=== PATIENT | female | born 1995 | race Caucasian/White ===

== ENCOUNTER 2017-04-05 15:57 | Emergency (ER) | payer OTHER ==
[2017-04-05 16:11] VITALS: BP 123/83; PULSE 93; TEMP 99.4; BMI 23.2
[2017-04-05] MEDS ORDERED: DEXAMETHASONE SOD PHOSPHATE 10 MG/1 ML VIAL IVPUSH ONE (16:30)
[2017-04-05] MEDS ORDERED: SODIUM CHLORIDE 1,000 ML IV STA (16:30)
[2017-04-05] MEDS ORDERED: KETOROLAC TROMETHAMINE 15 MG/ML VIAL IVPUSH ONE (16:30)
[2017-04-05] MEDS ORDERED: KETOROLAC TROMETHAMINE 15 MG/ML VIAL ONE (16:43)
[2017-04-05] MEDS ORDERED: DEXAMETHASONE SOD PHOSPHATE 10 MG/1 ML VIAL ONE (16:43)
--- NOTE | 2017-04-05 16:46 | PDOC ---
History of Present Illness - General Chief Complaint: Sore Throat Stated Complaint: SORE THROAT Time Seen by Provider: 04/05/17 16:02 - History of Present Illness Initial Comments: 04/05/17 16:38 21 F with no PMH presents to ER with 2 days of sore throat. Pt states that she has been having pain with swallowing and can only tolerate bread and liquids. She notes having a fever 2 days ago but none today. Did not measure her temperature. Pt also has mild cough productive of clear sputum. Pt denies N/V. Denies abdominal pain/diarrhea. Reports that she has had recurrent strep throat , usually once a year. She was prescribed azithromycin by her mother, who is an MEDICAL SERVICES ASSISTANT. She has taken 2 doses with no improvement in her symptoms. Pt denies difficulty breathing, denies SOB/CP. Past History - Past Medical History Allergies/Adverse Reactions: Allergies Allergy/AdvReac Type Severity Reaction Status Date / Time No Known Allergies Allergy Verified 04/05/17 15:58 Home Medications: Ambulatory Orders Amoxicillin - [Amoxicillin 500mg Capsule -] 500 mg PO BID #20 capsule 04/05/17 Azithromycin 500 mg PO DAILY 04/05/17 Ibuprofen [Motrin -] 600 mg PO TID 04/05/17 COPD: No - Suicide/Smoking/Psychosocial Hx Smoking History: Never smoked Have you smoked in the past 12 months: No Information on smoking cessation initiated: No Hx Alcohol Use: No Drug/Substance Use Hx: No Substance Use Type: None Review of Systems - Review of Systems Comments:: 04/05/17 16:59 "GENERAL/CONSTITUTIONAL: +Chills. No fever. No weakness. HEAD, EYES, EARS, NOSE AND THROAT: +Sore throat. No change in vision. No ear pain or discharge. CARDIOVASCULAR: No chest pain or shortness of breath. RESPIRATORY: +Cough. No wheezing, or hemoptysis. GASTROINTESTINAL: No nausea, vomiting, diarrhea or constipation. GENITOURINARY: No dysuria, frequency, or change in urination. MUSCULOSKELETAL: No joint or muscle swelling or pain. No neck or back pain. SKIN: No rash NEUROLOGIC: No headache, vertigo, loss of consciousness, or change in strength/ sensation. ENDOCRINE: No increased thirst. No abnormal weight change. HEMATOLOGIC/LYMPHATIC: No anemia, easy bleeding, or history of blood clots. ALLERGIC/IMMUNOLOGIC: No hives or skin allergy. " *Physical Exam - Vital Signs Last Vital Signs Temp Pulse Resp BP Pulse Ox 99.4 F 93 H 20 123/83 98 04/05/17 15:58 04/05/17 15:58 04/05/17 15:58 04/05/17 15:58 04/05/17 15:58 - Physical Exam Comments: 04/05/17 16:59 "GENERAL: Awake, alert, and fully oriented, in no acute distress HEAD: No signs of trauma EYES: PERRLA, EOMI, sclera anicteric, conjunctiva clear ENT: + enlarged tonsils with white exudates, no uvular deviation, no purulent drainage TMs wnl NECK: + anterior cervical lymphadenopathy, no fluctuance LUNGS: Breath sounds equal, clear to auscultation bilaterally. No wheezes, and no crackles HEART: Regular rate and rhythm, normal S1 and S2, no murmurs, rubs or gallops ABDOMEN: Soft, nontender, normoactive bowel sounds. No guarding, no rebound. No masses EXTREMITIES: Normal range of motion, no edema. No clubbing or cyanosis. No cords, erythema, or tenderness NEUROLOGICAL: Cranial nerves II through XII intact. 5/5 strength and sensation in all extremities, Normal speech, normal gait SKIN: Warm, Dry, normal turgor, no rashes or lesions noted. Medical Decision Making - Medical Decision Making 04/05/17 17:00 21 F with sore throat x 2 days, found to have white exudates and enlarged tonsils, concerning for strep pharyngitis. No signs of LANGUAGE ASSISTANT or RPA. Pt non-toxic appearing. - Rapid strep - IVF, toradol, decadron 04/05/17 17:04 Rapid strep positive. Pt started on amoxicillin. Pt well appearing, tolerating PO fluids, vitals normal. Clinically stable for DC. Will DC with ENT f/u. *DC/Admit/Observation/Transfer Diagnosis at time of Disposition: Strep pharyngitis - Discharge Dispostion Disposition: HOME - Prescriptions Prescriptions: Amoxicillin - [Amoxicillin 500mg Capsule -] 500 mg PO BID #20 capsule - Referrals Referrals: Jovan Mesa MD [Staff Physician] - - Patient Instructions Printed Discharge Instructions: DI for Strep Throat Additional Instructions: You have strep throat. Take the antibiotics as prescribed to treat it. If you experience worsening pain, swelling, difficulty swallowing or breathing, return to the ER immediately. Otherwise, follow up with an ENT specialist within 1-2 weeks. Call the number provided to make an appointment. - Post Discharge Activity - Attestations Physician Attestion: 04/05/17 17:07 I, Dr. Zander Sauceda MD, attest that this document has been prepared under my direction and personally reviewed by me in its entirety. I further attest, that it accurately reflects all work, treatment, procedures and medical decision -making performed by me.
[2017-04-05] MEDS ORDERED: AMOXICILLIN 500 MG CAPSULE (FP) PO ONE (16:57)
[2017-04-05] MEDS ORDERED: AMOXICILLIN 250 MG CAPSULE ONE (17:14)
== END 2017-04-05 17:59 | disposition home or self-care (01) ==
LOC: FER 15:57
PROC: 3E033GC Introduction of Other Therapeutic Substance into Peripheral Vein, Percutaneous Approach (ICD-10-PCS; principal; 2017-04-05)
PROC: 3E0337Z Introduction of Electrolytic and Water Balance Substance into Peripheral Vein, Percutaneous Approach (ICD-10-PCS; 2017-04-05)
PROC: 3E0333Z Introduction of Anti-inflammatory into Peripheral Vein, Percutaneous Approach (ICD-10-PCS; 2017-04-05)
DX: J02.0 Streptococcal pharyngitis (principal)
CPT/HCPCS: 87070; 87077; 87430; 99282-25